=== PATIENT | male | born 1950 | race Caucasian/White ===

== ENCOUNTER → 2024-01-30 11:06 | Outpatient (REF) | payer MEDICARE, OTHER, SELFPAY ==
[2024-01-30 16:22] LABS: PSA, Total - Diagnostic 6.22 ng/ml (0.0-4.0)
== END ==
LOC: HWLAB 11:06
PROVIDERS: ATTENDING PHYSICIAN Specialist; FAMILY PHYSICIAN Family Medicine
DX: R97.20 Elevated prostate specific antigen [PSA] (principal); N20.0 Calculus of kidney
CPT/HCPCS: 36415; 74018; 84153

== ENCOUNTER → 2024-08-06 11:21 | Outpatient (REF) | payer MEDICARE, OTHER, SELFPAY ==
[2024-08-06 16:53] LABS: PSA, Total - Diagnostic 5.18 ng/ml (0.0-4.0)
== END ==
LOC: HWLAB 11:21
PROVIDERS: ATTENDING PHYSICIAN Specialist; FAMILY PHYSICIAN Family Medicine
DX: R97.20 Elevated prostate specific antigen [PSA] (principal); N40.0 Benign prostatic hyperplasia without lower urinary tract symptoms
CPT/HCPCS: 36415; 84153

== ENCOUNTER → 2025-02-20 10:10 | Outpatient (REF) | payer MEDICARE, OTHER, SELFPAY ==
[2025-02-20 13:45] LABS: PSA, Total - Diagnostic 6.68 ng/ml (0.0-4.0)
== END ==
LOC: HWLAB 10:10
PROVIDERS: ATTENDING PHYSICIAN Specialist; FAMILY PHYSICIAN Family Medicine
DX: R97.20 Elevated prostate specific antigen [PSA] (principal)
CPT/HCPCS: 36415; 84153